=== PATIENT | male | born 1980 | race Caucasian/White ===

== ENCOUNTER 2018-04-16 13:51 | Inpatient (IN) | payer BC ==
[~2018-04-16] VITALS: Ht 172.7 cm; Wt 106.6 kg
[~2018-04-16 13:51] MED LIST: CENTRUM SILVER1 EAC2; FENOFIBRIC ACID35 MG PO; FISH OIL 1,001000 M2 PO; MAXZIDE-25 MG1 EACH PO; VITAMIN E400 UNIT
[2018-04-16 13:53] VITALS: BP 170/99
[2018-04-16 14:15] LABS: URINE BILIRUBIN NEGATIVE (Negative); URINE BLOOD NEGATIVE (Negative); URINE CLARITY CLEAR; URINE COLOR YELLOW; URINE GLUCOSE-RANDOM* 3+ (Negative); URINE KETONES TRACE (Negative); URINE LEUKOCYTES NEGATIVE (Negative); URINE NITRITE NEGATIVE (Negative); URINE PROTEIN (DIPSTICK) NEGATIVE (Negative); URINE SPECIFIC GRAVITY 1.025 (1.005-1.035); URINE UROBILINOGEN 0.2 E.U./dl (0.2-1.0)
[2018-04-16 14:17] LABS: ABSOLUTE NEUTROPHILS 10.2 thou/uL (1.4-8.2); BASOPHILS 0.6 % (0.0-2.0); EOSINOPHILS 0.4 % (0.0-3.0); LYMPHOCYTES 17.1 % (24.0-44.0); MONOCYTES 6.4 % (1.0-8.0); PLATELET COUNT 229 thou/uL (150-400); POLYS 75.5 % (36.0-66.0); RBC 5.06 mil/uL (4.50-6.00); RDW 12.4 % (10.5-14.5); WBC 13.5 thou/uL (4.0-11.0)
[2018-04-16 14:35] LABS: POTASSIUM 4.3 mmol/L (3.5-5.1)
[2018-04-16 14:53] LABS: HEMOGLOBIN 15.2 gm/dL (14.0-18.0)
[2018-04-16 14:54] LABS: MCHC 34.5 g/dL (28.0-37.0); MCV 86.9 fL (80.0-100.0)
[2018-04-16 15:02] LABS: ALBUMIN 3.5 g/dL (3.4-5.0); CREATININE 0.5 mg/dL (0.7-1.3); TOTAL BILIRUBIN 1.8 mg/dL (<0.1-1.0); TOTAL PROTEIN 6.3 g/dL (6.4-8.2)
[2018-04-16 16:41] VITALS: BP 170/99
[2018-04-16 17:07] VITALS: BP 163/90
[2018-04-16 19:06] VITALS: BP 146/87
[2018-04-16] MEDS ORDERED: LISINOPRIL10 MG PO (20:27)
[2018-04-16] MEDS ORDERED: CELEXA20 MG PO (20:29)
[2018-04-16 23:37] VITALS: BP 167/83
[2018-04-17 03:11] VITALS: BP 129/88
[2018-04-17 07:36] VITALS: BP 135/78
[2018-04-17 09:13] LABS: ALBUMIN 3.3 g/dL (3.4-5.0); BUN 8 mg/dL (7-18); CALCIUM 8.3 mg/dL (8.5-10.1); CHLORIDE 96 mmol/L (98-107); CO2 24 mmol/L (21-32); CREATININE 0.8 mg/dL (0.7-1.3); HDL CHOLESTEROL 25 mg/dL (>40); POTASSIUM 3.5 mmol/L (3.5-5.1); TC:HDL 13.9 Ratio (Not establshd); TOTAL BILIRUBIN 0.9 mg/dL (<0.1-1.0); VLDL 427 mg/dL (<40)
[2018-04-17 09:20] LABS: ANION GAP 13 mmol/L (7-16); SODIUM 133 mmol/L (136-145)
[2018-04-17 10:14] LABS: GLUCOSE 334 mg/dL (74-106); TOTAL PROTEIN 7.3 g/dL (6.4-8.2)
[2018-04-17 10:17] LABS: CHOLESTEROL 348 mg/dL (<200); SERUM ASSESSMENT Gross Lipemia; TRIGLYCERIDE 2135 mg/dL (<150)
[2018-04-17 10:32] LABS: SGOT 34 U/L (15-37); SGPT 89 U/L (30-65)
[2018-04-17 15:12] VITALS: BP 146/84
[2018-04-17 20:09] VITALS: BP 151/92
[2018-04-18 03:40] LABS: CALCIUM 8.5 mg/dL (8.5-10.1); CREATININE 0.9 mg/dL (0.7-1.3); POTASSIUM 4.1 mmol/L (3.5-5.1); TOTAL BILIRUBIN 1.2 mg/dL (<0.1-1.0)
[2018-04-18 04:27] VITALS: BP 161/93
[2018-04-18 07:12] VITALS: BP 156/88
[2018-04-18] MEDS ORDERED: TRAMADOL 50 MG50 MG PO (09:10)
[2018-04-18] MEDS ORDERED: COLACE100 MG PO (09:11)
[2018-04-18 09:58] VITALS: BP 156/88
== END 2018-04-18 12:20 | disposition home or self-care (01) | DRG 439 ==
LOC: ER 13:51 → 2N 16:11 → EROBS 16:11 → 2N 17:45
PROVIDERS: Hospitalist; Physician Assistant
DX: K85.90 Acute pancreatitis without necrosis or infection, unspecified (principal); E87.1 Hypo-osmolality and hyponatremia; I10 Essential (primary) hypertension; E86.1 Hypovolemia; R73.9 Hyperglycemia, unspecified; F10.20 Alcohol dependence, uncomplicated; Y90.9 Presence of alcohol in blood, level not specified; Z87.442 Personal history of urinary calculi; Z79.899 Other long term (current) drug therapy; Z71.41 Alcohol abuse counseling and surveillance of alcoholic
CPT/HCPCS: 10081

== ENCOUNTER 2018-04-20 18:51 | Emergency (ER) | payer BC ==
[~2018-04-20] VITALS: Ht 172.7 cm; Wt 108.9 kg
[2018-04-20 20:18] LABS: MCV 86.8 fL (80.0-100.0); RDW 12.5 % (10.5-14.5)
[2018-04-20 20:20] LABS: HEMATOCRIT 37.3 % (42.0-52.0); HEMOGLOBIN 12.8 gm/dL (14.0-18.0); MCH 29.7 pg (26.0-34.0); MCHC 34.2 g/dL (28.0-37.0); PLATELET COUNT 217 thou/uL (150-400); RBC 4.29 mil/uL (4.50-6.00); WBC 11.4 thou/uL (4.0-11.0)
[2018-04-20 20:29] LABS: CALCIUM 9.1 mg/dL (8.5-10.1); CREATININE 0.8 mg/dL (0.7-1.3); POTASSIUM 3.1 mmol/L (3.5-5.1)
[2018-04-20 20:35] LABS: ALBUMIN 2.6 g/dL (3.4-5.0); TOTAL BILIRUBIN 0.6 mg/dL (<0.1-1.0); TOTAL PROTEIN 6.9 g/dL (6.4-8.2)
[2018-04-20 21:01] LABS: ABSOLUTE NEUTROPHILS 7.9 thou/uL (1.4-8.2); ATYPICAL LYMPHS 1 %; METAMYELOCYTES 1 %
[2018-04-20 21:31] VITALS: BP 125/66
== END 2018-04-20 21:46 | disposition home or self-care (01) ==
LOC: ER 18:51
PROVIDERS: Physician Assistant
DX: R10.9 Unspecified abdominal pain (principal); Z87.19 Personal history of other diseases of the digestive system; R00.0 Tachycardia, unspecified; I10 Essential (primary) hypertension; Z87.442 Personal history of urinary calculi; Z90.49 Acquired absence of other specified parts of digestive tract

== ENCOUNTER → 2018-04-20 | Outpatient (CLI) | payer BC ==
[~2018-04-20] MED LIST changes: +CELEXA20 MG PO; +COLACE100 MG PO; +LISINOPRIL10 MG PO; +TRAMADOL 50 MG50 MG PO
== END ==
LOC: ULTRA 15:46 → CAT 16:14
DX: J90 Pleural effusion, not elsewhere classified (principal); J98.11 Atelectasis; K85.20 Alcohol induced acute pancreatitis without necrosis or infection; K76.0 Fatty (change of) liver, not elsewhere classified; N20.0 Calculus of kidney; N28.1 Cyst of kidney, acquired; I31.3 Pericardial effusion (noninflammatory); K40.90 Unilateral inguinal hernia, without obstruction or gangrene, not specified as recurrent; K46.9 Unspecified abdominal hernia without obstruction or gangrene; R73.9 Hyperglycemia, unspecified; Z68.36 Body mass index [BMI] 36.0-36.9, adult

== ENCOUNTER → 2020-08-22 | Outpatient (CLI) | payer BC | LOC: ULTRA 08:59 | PROVIDERS: ATTEND Family Medicine | DX: N28.1 Cyst of kidney, acquired (principal); K76.0 Fatty (change of) liver, not elsewhere classified ==

== ENCOUNTER → 2020-09-11 | Outpatient (CLI) | payer BC | LOC: NUC 07:43 | PROVIDERS: ATTEND Family Medicine | DX: R10.11 Right upper quadrant pain (principal); R06.02 Shortness of breath ==